=== PATIENT | female | born 1955 | race Caucasian/White ===

== ENCOUNTER 2022-12-01 11:00 | Outpatient (CLI) | payer MEDICARE, OTHER | END 2022-12-01 11:01 | disposition home or self-care (01) | LOC: CSHRAD 11:00 | PROVIDERS: ATTEND Anesthesiology Pain Medicine | DX: M47.816 Spondylosis without myelopathy or radiculopathy, lumbar region (principal) | CPT/HCPCS: 72110 ==

== ENCOUNTER 2023-02-05 22:17 | Emergency (ER) | payer MEDICARE ==
[2023-02-05] MEDS ORDERED: Magnesium Oxide 250 MG TAB PO SCH (23:45)
== END 2023-02-06 01:30 | disposition home or self-care (01) ==
LOC: CSHERS 22:17
DX: T38.3X1A Poisoning by insulin and oral hypoglycemic [antidiabetic] drugs, accidental (unintentional), initial encounter (principal); I25.10 Atherosclerotic heart disease of native coronary artery without angina pectoris; K21.9 Gastro-esophageal reflux disease without esophagitis; I10 Essential (primary) hypertension; E11.9 Type 2 diabetes mellitus without complications; E78.5 Hyperlipidemia, unspecified; F17.210 Nicotine dependence, cigarettes, uncomplicated; Z79.899 Other long term (current) drug therapy
CPT/HCPCS: 36416; 99284

== ENCOUNTER 2024-05-27 10:07 | Outpatient (CLI) | payer MEDICARE | END 2024-05-27 10:08 | disposition home or self-care (01) | LOC: CSHCT 10:07 | PROVIDERS: ATTEND Student in an Organized Health Care Education/Training Program | DX: R14.0 Abdominal distension (gaseous) (principal); R10.12 Left upper quadrant pain; G89.29 Other chronic pain | CPT/HCPCS: 36415; 74177; 82565 ==

== ENCOUNTER 2025-03-18 13:00 | Outpatient (CLI) | payer MEDICARE | END 2025-03-18 13:01 | disposition home or self-care (01) | LOC: CSHMRI 13:00 | PROVIDERS: ATTEND Physical Medicine & Rehabilitation | DX: M47.26 Other spondylosis with radiculopathy, lumbar region (principal); M48.061 Spinal stenosis, lumbar region without neurogenic claudication; M51.16 Intervertebral disc disorders with radiculopathy, lumbar region | CPT/HCPCS: 72148 ==